=== PATIENT | female | born 1995 | race Asian ===

== ENCOUNTER 2019-11-19 16:40 | Emergency (ER) | payer OTHER ==
[2019-11-19 17:02] VITALS: BP 108/74
[2019-11-19] MEDS ORDERED: Lidocaine 2% VISCOUS* 15 ML UDC TOPICAL ONE (17:08)
[2019-11-19] MEDS ORDERED: Lidocaine 1% MPF ** 5 ML VIAL INJ ONE (18:12)
--- NOTE | 2019-11-19 18:12 | UC ---
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 07/29 pain - History of Current Complaint Chief Complaint: UCGeneralIllness Stated Complaint: TONGUE STUCK IN BRACES Time Seen by Provider: 11/19/19 17:08 Hx Obtained From: Patient Onset/Duration: Sudden Onset, Lasting Minutes Severity: Severe Pain Intensity: 10 Pain Scale Used: 0-10 Numeric Aggravating Factor(s): Other - movement - Allergies/Home Medications Allergies/Adverse Reactions: Allergies Allergy/AdvReac Type Severity Reaction Status Date / Time No Known Allergies Allergy Verified 11/19/19 17:02 Home Medications: Home Medications NK [No Home Medications Reported] 11/19/19 [History Confirmed 11/19/19] PMH/Surg Hx/FS Hx/Imm Hx Previously Healthy: Yes - Surgical History Surgical History: None - Family History Known Family History: Positive: Non-Contributory - Social History Alcohol Use: None Substance Use Type: None Smoking Status (MU): Never Smoked Tobacco Review of Systems All Other Systems Reviewed And Are Negative: Yes Constitutional: Positive: Negative Skin: Positive: Negative Eyes: Positive: Negative ENT: Positive: Negative Respiratory: Positive: Negative Cardiovascular: Positive: Negative Gastrointestinal: Positive: Negative Genitourinary: Positive: Negative Motor: Positive: Negative Neurovascular: Positive: Negative Musculoskeletal: Positive: Negative Neurological: Positive: Negative Psychological: Positive: Negative Physical Exam Triage Information Reviewed: Yes Appearance: Well-Appearing, No Pain Distress, Well-Nourished Vital Signs: Initial Vital Signs Temp 99 F 11/19/19 16:57 Pulse 77 11/19/19 16:57 Resp 14 11/19/19 16:57 BP 108/74 11/19/19 16:57 Pulse Ox 98 11/19/19 16:57 Vital Signs Reviewed: Yes Eyes: Positive: Conjunctiva Clear ENT: Positive: Normal ENT inspection. Negative: Nasal congestion, Nasal drainage, Muffled voice, Hoarse voice, Sinus tenderness Dental Exam: Other - tongue impaled on braces left lower Neck: Positive: Supple, Nontender, No Lymphadenopathy Respiratory: Positive: Lungs clear, Normal breath sounds, No respiratory distress Cardiovascular: Positive: RRR Musculoskeletal: Positive: ROM Intact, No Edema Neurological: Positive: Alert Psychological Exam: Normal Skin Exam: Normal Procedures - Procedure Summary Procedure Summary: PROCEDURE: stuck portion of tongue numbed wi 1 cc lidocaine time out was performed using a q tip the tongue was gently pushed off the offending wire tolerated procedure well Dental Complaint Course/Dx - Differential Dx/Diagnosis Provider Diagnosis: Tongue injury Discharge ED - Sign-Out/Discharge Documenting (check all that apply): Patient Departure All imaging exams completed and their final reports reviewed: No Studies - Discharge Plan Condition: Improved Disposition: HOME Referrals: No Primary Care Phys,NOPCP [Primary Care Provider] - Additional Instructions: I suggest you try to find a local 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
== END 2019-11-19 18:32 | disposition home or self-care (01) ==
LOC: UCEAST 16:40
DX: S09.93XA Unspecified injury of face, initial encounter (principal); W23.0XXA Caught, crushed, jammed, or pinched between moving objects, initial encounter; Y92.9 Unspecified place or not applicable
CPT/HCPCS: 99201; G0463